=== PATIENT | male | born 1980 | race Caucasian/White ===

== ENCOUNTER → 2021-12-14 13:07 | Outpatient (BNVA) | payer OTHER, SELFPAY | PROVIDERS: Visit Provider Registered Nurse Neonatal Intensive Care | DX: M25.569 Pain in unspecified knee (principal); S99.912A Unspecified injury of left ankle, initial encounter; M79.672 Pain in left foot | CPT/HCPCS: 73562; 73610; 73630 ==

== ENCOUNTER → 2022-05-08 16:08 | Outpatient (BNVA) | payer OTHER, SELFPAY | PROVIDERS: Visit Provider Family Medicine | DX: M79.7 Fibromyalgia (principal); G89.29 Other chronic pain; F41.1 Generalized anxiety disorder; F41.0 Panic disorder [episodic paroxysmal anxiety]; Z76.89 Persons encountering health services in other specified circumstances | CPT/HCPCS: 80053; 80061; 85025; 85651; 86140 ==

== ENCOUNTER 2022-06-17 23:23 | Emergency (ER) | payer OTHER, SELFPAY ==
[2022-06-17 23:28] VITALS: BP 153/92; PULSE 71; RESP 18; TEMP 36.6; O2SAT 98; BMI 31.5
--- NOTE | 2022-06-17 23:41 | XRR_ITS ---
PROCEDURE INFORMATION: Exam: XR Thoracic Spine Exam date and time: 06/17/2022 11:59 PM Age: 41 years old Clinical indication: Injury or trauma; Fall; Crushing; Additional info: Fall injury TECHNIQUE: Imaging protocol: Radiologic exam of the thoracic spine. Views: 3 views. COMPARISON: No relevant prior studies available. FINDINGS: Bones/joints: Multilevel ocnz-eo-qohvyvdj disc space narrowing and productive degenerative endplate changes throughout the spine. Soft tissues: Unremarkable. XR/XR thoracic spine 3V* [id number] IMPRESSION: 1. Negative for fracture or dislocation. 2. Multilevel kgkv-wk-wozjrwct disc space narrowing and productive degenerative endplate changes throughout the spine.
--- NOTE | 2022-06-17 23:41 | XRR_ITS ---
PROCEDURE INFORMATION: Exam: XR Lumbosacral Spine Exam date and time: 06/18/2022 12:05 AM Age: 41 years old Clinical indication: Injury or trauma; Fall; Crushing; Additional info: Fall injury TECHNIQUE: Imaging protocol: Radiologic exam of the lumbosacral spine. Views: 2 or 3 views. COMPARISON: CR (CHEST, ) 06/17/2022 11:59 PM FINDINGS: Bones/joints: Mild dextrocurvature of the lumbar spine. Multilevel moderate to severe disc space narrowing throughout the lumbar spine most significant at L3-L4 with productive degenerative endplate changes. Soft tissues: Unremarkable. XR/XR lumbar spine 2-3V* [id number] IMPRESSION: 1. Negative for fracture or dislocation. 2. Mild dextrocurvature of the lumbar spine. 3. Multilevel moderate to severe disc space narrowing throughout the lumbar spine most significant at L3-L4 with productive degenerative endplate changes.
--- NOTE | 2022-06-17 23:41 | W.ED.BACK ---
HPI - Back Pain/Injury General: Chief Complaint: Back Pain/Injury Stated Complaint: fall, back pain Time Seen by Provider: 06/17/22 23:40 History of Present Illness: 41-year-old male patient comes in today for complaints of falling onto his right side while rollerskating, incident occurred this evening. Patient reports back pain. Patient has a history of anxiety disorder and fibromyalgia along with chronic pain syndrome. Patient appears nontoxic. Patient appears no acute distress. Review of Systems General: Reports: 10 or more systems reviewed and unremarkable except in HPI and below Musc: Reports: back pain PFSH ED PFSH: Family History Other CAD (coronary artery disease) Social History Smoking and tobacco status: current every day smoker cigarettes Packs smoked per day: 1 Second hand smoke exposure: No Smoking risk assessment/counseling performed?: No Alcohol intake: current Alcohol intake frequency: few times a week Alcohol type: beer Adopted: No Caregiver/support person: No Lives independently: Yes Housing: House Current gender identity: Male Physical Exam Const: COMMON NORMALS: alert HENMT: COMMON NORMALS: atraumatic HEAD & SCALP: atraumatic Neck/C-Spine: COMMON NORMALS: full ROM Chest: COMMONS NORMALS: normal palpation of entire chest wall Resp: COMMON NORMALS: normal respiratory effort Cardio: COMMON NORMALS: regular rate RATE: regular rate Back/Pelvis: COMMON NORMALS: thoracic and lumbar spine normal to inspection LUMBAR SPINE/LOWER BACK: Yes paraspinal muscle tenderness Lumbar paraspinal muscle tenderness: right Extremity: COMMON NORMALS: normal to inspection Neuro: SENSORIUM/ORIENTATION: Yes alert Skin: COMMON NORMALS: turgor normal GENERAL SKIN EXAM: turgor normal Course Vital Signs: Vital signs: Vital Signs Temperature 97.8 F 06/17/22 23:28 Pulse Rate 71 06/17/22 23:28 Respiratory Rate 18 06/17/22 23:28 Blood Pressure 153/92 06/17/22 23:28 Pulse Oximetry 98 06/17/22 23:28 Oxygen Delivery Me thod 06/17/22 23:28 MDM - Back Pain/Injury Medical Decision Making 41-year-old male patient fell while skating today injuring his right lower back. Patient had persistent pain since falling earlier this evening. Patient does have a history of chronic pain syndrome. On exam no cervical spine, thoracic spine, or lumbar spine tenderness. Patient does have paraspinous muscle tenderness of the left lower back. Differential diagnosis includes but not limited to lumbar strain, contusion, fracture. X-rays noted no acute fracture. Patient does have some significant degeneration of the right cecum lumbar spine. Patient was recommended to use celecoxib 100 mg twice a day for pain and inflammation routinely. And to use hydrocodone for severe pain. Patient can also use some acetaminophen for breakthrough pain. Patient reported understanding and agreed to plan. Labs Radiology Impressions Lumbar Spine X-Ray 06/17/22 23:41 IMPRESSION: 1. Negative for fracture or dislocation. 2. Mild dextrocurvature of the lumbar spine. 3. Multilevel moderate to severe disc space narrowing throughout the lumbar spine most significant at L3-L4 with productive degenerative endplate changes. Thoracic Spine X-Ray 06/17/22 23:41 IMPRESSION: 1. Negative for fracture or dislocation. 2. Multilevel wldz-wl-bjjnozir disc space narrowing and productive degenerative endplate changes throughout the spine. Discharge Plan Discharge Patient Disposition: Home Clinical Impression: Strain of lumbar region Qualifiers: Encounter type: initial encounter Qualified Code(s): S39.012A - Strain of muscle, fascia and tendon of lower back, initial encounter Condition: Stable Prescriptions: New hydrocodone-acetaminophen 7.5-325 mg tablet 1 tab PO Q8H PRN (Reason: pain (scale score 7-10)) Qty: 12 0RF No Action methocarbamol 500 mg tablet 500 mg PO TID Qty: 60 2RF celecoxib [Celebrex] 100 mg capsule 100 mg PO BID Qty: 60 5RF clonazepam 1 mg tablet 1 mg PO DAILY 30 Days Qty: 30 5RF escitalopram oxalate [Lexapro] 10 mg tablet 10 mg PO DAILY Qty: 30 5RF Discharge Orders: Discharge ED (Routine); Ordered 06/18/22 Ordered By: Eric Emerson Referrals: Mariano Zamora DO [Primary Care Provider] - Discharge Diet: Usual diet Discharge Activity: Increase activity as tolerated Patient Instructions: Opioid Safety, Pain Management Activity Restrictions/Additional Instructions: Try to maintain normal activity. Use ice or heat for further pain relief. Use acetaminophen and celecoxib for pain and inflammation. Use hydrocodone for severe pain. Follow-up with primary care for further instructions. Return to ED for new concerns. Coding Level of Care Code ED [facility] for Johnathan Davies
[2022-06-17] MEDS: HYDROcodone-acetaminophen 10-325 mg Tablet 1 TAB PO (23:46)
[2022-06-17] MEDS: ketorolac 30 mg/mL INJ IM (23:48)
[2022-06-18 00:33] VITALS: BP 146/90; PULSE 62; RESP 16; O2SAT 96
== END 2022-06-18 00:33 | disposition home or self-care (01) ==
PROVIDERS: Emergency Provider Nurse Practitioner Family; PCP Family Medicine
DX: S39.012A Strain of muscle, fascia and tendon of lower back, initial encounter (principal); G89.4 Chronic pain syndrome; F17.210 Nicotine dependence, cigarettes, uncomplicated; W18.30XA Fall on same level, unspecified, initial encounter; Y93.51 Activity, roller skating (inline) and skateboarding
CPT/HCPCS: 72072; 72100; 96372; 99284; J1885